=== PATIENT | female | born 1940 | race Caucasian/White ===

== ENCOUNTER 2019-06-29 06:11 | Inpatient (IN) ==
[2019-06-29] MEDS ORDERED: NS 1,000 ML IV ONE ×3 (06:21→07:56)
[2019-06-29] MEDS ORDERED: ZOFRAN IV ONE (06:22)
[2019-06-29] MEDS ORDERED: BENTYL IM ONE (06:22)
--- NOTE | 2019-06-29 06:30 | PROVIDER DOCUMENTATION ---
HPI-Syncope/Dizziness - General Stated Complaint: syncope Time Seen by Provider: 06/29/19 06:13 Source: patient, EMS Allergies/Adverse Reactions: Patient Allergies Allergy/AdvReac Type Severity Reaction Status Date / Time Penicillins Allergy Severe RASH Verified 06/29/19 07:34 Sulfa (Sulfonamide Allergy Severe ANAPHYLAXIS Verified 06/29/19 07:34 Antibiotics) [Sulfa(Sulfonamide Antibiotics)] Home Medications: Home Medication List Medication Instructions Recorded Confirmed Last Taken Type Fluoxetine [Prozac] 20 mg PO DAILY 03/30/12 06/29/19 01/23/18 12:00 History Levothyroxine [Synthroid] 88 microgm PO DAILY 03/30/12 06/29/19 01/25/18 06:00 History Omeprazole 40 mg PO DAILY 03/11/15 06/29/19 01/23/18 12:00 History Cholecalciferol (Vitamin D3) 3,000 unit PO DAILY 06/29/19 06/29/19 Unknown History [Vitamin D3] Mecobalamin [B12 Active] 1,000 mcg PO DAILY 06/29/19 06/29/19 Unknown History Multivitamin [Multi-Vitamin Daily] 1 ea PO DAILY 06/29/19 06/29/19 Unknown History - History of Present Illness-Syncope/Dizzy Nature of Presenting Problem: 78yo female, brought by EMS for syncope and collapse x 3 since midnight. States last time she passed out in the bathroom, and she hit the right forehead. States she had sudden onset of profuse N/V/D since midnight, numerous times, and this has caused her to become dehydrated and pass out. Denies blood in vomit or stool. Has some mild to moderate abdominal cramps. No fever/chills. Prior Episodes: reports: no prior history, multiple episodes today Onset/Duration: reports: 4-6 hours ago Timing: reports: still present, constant, getting worse Position/Activity at time of episode: reports: activity (in the bathroom, vomiting and diarrhea) Symptoms prior to episode: reports: lightheaded, nausea/vomiting (and diarrhea), abdominal pain (some mild to moderate crampy), diaphoresis. denies: headache, visual disturbance, chest pain, racing heart, back pain, confusion, injury, recent head trauma, rapid heart beat Context: reports: lost consciousness, collapsed. denies: confused after event, incontinent of urine, incontinent of stool, breathing stopped, lost pulse, seizure activity observed, low blood sugar Loss of Consciousness: brief (seconds) Location of injury. (If syncope resulted in an injury.): reports: head Current Symptoms: reports: sweaty Recently Seen Here or By Another Healthcare Provider: Yes (Saw Dr. Gomez for leg pain, negative DVT, put on prednisone ) Review of Systems - Adult - REVIEW OF SYSTEMS - ADULT Constitutional: reports: no symptoms reported Eyes: reports: no symptoms reported Ears, Nose, Mouth & Throat: reports: no symptoms reported Cardiovascular: reports: no symptoms reported Respiratory: reports: no symptoms reported Gastrointestinal: reports: no symptoms reported Genitourinary: reports: no symptoms reported Musculoskeletal: reports: no symptoms reported Integumentary: reports: no symptoms reported Neurological: reports: no symptoms reported Psychiatric: reports: no symptoms reported Endocrine: reports: no symptoms reported Hematologic/Lymphatic: reports: no symptoms reported Allergic/Immunologic: reports: no symptoms reported All Other Systems: Reviewed and Negative Past History - Adult - PAST MEDICAL HISTORY-ADULT Review of Records: reports: Old Records Reviewed, Nursing Assessment Review, Medications Reviewed, Social history reviewed & non-contributory. Major Childhood Illnesses: reports: denies history Cardiovascular: reports: pacemaker Respiratory: reports: cancer Gastrointestinal: reports: denies history Obstetrical/Gynecological: reports: denies history Genitourinary: reports: denies history Musculoskeletal: reports: denies history Neurological: reports: denies history Endocrine/Immune: reports: denies history Other Conditions: reports: denies history - PRIOR SURGERIES/PROCEDURES Surgical/Procedure History: reports: reviewed, not pertinent, pacemaker, joint replacement - IMMUNIZATION STATUS Childhood Immunizations: See Nurse Assessment Flu Vaccine: See Nurse Assessment - FAMILY HISTORY Family History: reviewed, not pertinent - SOCIAL HISTORY Smoking: non-smoker Substance Use: none/never Alcohol Use Frequency: rarely Living Situation: family Physical Exam-General - PHYSICAL EXAM-ADULT Initial Vital Signs Reviewed: Yes (VSSAF) - CONSTITUTIONAL General Appearance: appears well, alert, no apparent distress - EYES Eyes: PERRL/EOMI, pink conjunctivae. negative: subconjunctival hemorrhage - HEAD, EARS, NOSE, MOUTH & THROAT HENMT: moist mucous membranes, normal ENT inspection, TMs normal, other (there is a 3fpp9by hematoma, right foreahead with ecchymosis and mild tenderness without deformit. Negative racoon's/Patel's sign.) - NECK Neck: non-tender, full range of motion, supple, normal inspection. negative: meningismus - RESPIRATORY Respiratory: chest non-tender, lungs clear, normal breath sounds, no pleuratic chest pain, no respiratory distress, no accessory muscle use - CARDIOVASCULAR Cardiovascular: normal peripheral pulses, regular rate, rhythm, no edema, no gallop, no JVD, no murmur - GASTROINTESTINAL (ABDOMEN) Abdominal Exam: soft, no organomegaly, no pulsatile mass, abnormal bowel sounds (hyperactive), tenderness (mild diffuse). negative: guarding, rebound - LYMPHATIC Lymphatic: no adenopathy - MUSCULOSKELETAL Back Exam: normal inspection, no CVA tenderness, no vertebral tenderness Extremity: normal range of motion, non-tender, normal gait, normal inspection, no pedal edema, no calf tenderness, normal capillary refill - SKIN Integumentary: normal color, normal turgor, other (clammy, cool and moist) Progress - PLAN OF CARE/RESULTS Progress/Plan/Lab Results: Vital Signs - 8 hr 06/29/19 06:27 Temperature 97.6 F Pulse Rate 78 Respiratory Rate 18 Blood Pressure 114/62 O2 Sat by Pulse Oximetry 97 Laboratory Results - last 24 hr 06/29/19 06/29/19 06/29/19 06:53 06:53 06:53 WBC RBC Hgb Hct MCV MCH MCHC RDW Std Deviation Plt Count MPV Immature Gran % (Auto) Neut % (Auto) Lymph % (Auto) Gillespie % (Auto) Eos % (Auto) Baso % (Auto) Immature Gran # (Auto) Neut # (Auto) Lymph # (Auto) Gillespie # (Auto) Eos # (Auto) Baso # (Auto) PT INR PTT (Actin FS) D-Dimer, Quantitative Sodium 139 Potassium 4.1 Chloride 97 L Carbon Dioxide 28 Anion Gap 14 BUN 21 Creatinine 0.9 Estimated GFR/1.73 m2 > 60 BUN/Creatinine Ratio 23 Glucose 131 H POC Glucose Calculated Osmolality 282 Calcium 8.8 Magnesium 1.9 Total Bilirubin 0.71 AST 19 ALT 16 Alkaline Phosphatase 135 H Creatine Kinase Troponin T High Sens Nxc-K-Qrzscsedmti Pept Total Protein 7.5 Albumin 4.2 Globulin 3.3 Albumin/Globulin Ratio 1.3 Plasma Lactate 2.4 H TSH 1.40 06/29/19 06/29/19 06/29/19 06:53 06:53 06:53 WBC 15.56 H RBC 4.62 Hgb 13.4 Hct 43.2 MCV 93.5 MCH 29.0 MCHC 31.0 L RDW Std Deviation 14.1 Plt Count 287 MPV 8.7 Immature Gran % (Auto) 0.4 Neut % (Auto) 87.0 H Lymph % (Auto) 5.9 L Gillespie % (Auto) 6.0 Eos % (Auto) 0.6 Baso % (Auto) 0.1 Immature Gran # (Auto) 0.06 H Neut # (Auto) 13.53 H Lymph # (Auto) 0.92 L Gillespie # (Auto) 0.94 H Eos # (Auto) 0.09 Baso # (Auto) 0.02 PT INR PTT (Actin FS) D-Dimer, Quantitative Sodium Potassium Chloride Carbon Dioxide Anion Gap BUN Creatinine Estimated GFR/1.73 m2 BUN/Creatinine Ratio Glucose POC Glucose Calculated Osmolality Calcium Magnesium Total Bilirubin AST ALT Alkaline Phosphatase Creatine Kinase Troponin T High Sens 8 Fmz-A-Rfvehdxgtuk Pept 517 H Total Protein Albumin Globulin Albumin/Globulin Ratio Plasma Lactate TSH 06/29/19 06/29/19 06/29/19 06:53 06:53 07:47 WBC RBC Hgb Hct MCV MCH MCHC RDW Std Deviation Plt Count MPV Immature Gran % (Auto) Neut % (Auto) Lymph % (Auto) Gillespie % (Auto) Eos % (Auto) Baso % (Auto) Immature Gran # (Auto) Neut # (Auto) Lymph # (Auto) Gillespie # (Auto) Eos # (Auto) Baso # (Auto) PT 13.2 INR 0.99 PTT (Actin FS) 27.9 D-Dimer, Quantitative 2.42 H Sodium Potassium Chloride Carbon Dioxide Anion Gap BUN Creatinine Estimated GFR/1.73 m2 BUN/Creatinine Ratio Glucose POC Glucose 105 H Calculated Osmolality Calcium Magnesium Total Bilirubin AST ALT Alkaline Phosphatase Creatine Kinase 69 Troponin T High Sens Cdl-S-Ntfnsvtpccx Pept Total Protein Albumin Globulin Albumin/Globulin Ratio Plasma Lactate TSH Orders Category Date Time Status Cardiac Monitoring NOW Care 06/29/19 07:46 Active Finger Stick Blood Sugar (ED) DIRECTED Care 06/29/19 06:18 Completed Saline Loc NOW Care 06/29/19 06:18 Active CHEST-PORTABLE [RAD] Stat Exams 06/29/19 06:[address] HEAD/C-SPINE W/O CONTRAST [CT] Stat Exams 06/29/19 06:20 Completed BLOOD CULTURE [BLDCUL] Stat Lab 06/29/19 07:24 Received C DIFF TOXIN [STOOL] Stat Lab 06/29/19 06:19 Uncollected CBC WITH ELECTRONIC DIFF [HEME] Stat Lab 06/29/19 06:53 Completed CK PROFILE [SP CHEM] Stat Lab 06/29/19 06:53 Completed COMPREHENSIVE METABOLIC PANEL [CHEM] Stat Lab 06/29/19 06:53 Completed D-DIMER [COAG] Stat Lab 06/29/19 06:53 Completed LACTATE, PLASMA [CHEM] Lab 06/29/19 11:00 Uncollected LACTATE, PLASMA [CHEM] Lab 06/29/19 14:00 Uncollected LACTATE, PLASMA [CHEM] Stat Lab 06/29/19 06:53 Completed MAGNESIUM [CHEM] Stat Lab 06/29/19 06:53 Completed PRO B-NATRIURETIC PEPTIDE Stat Lab 06/29/19 06:53 Completed PROTIME WITH INR [COAG] Stat Lab 06/29/19 06:53 Completed PTT [COAG] Stat Lab 06/29/19 06:53 Completed TROPONIN T HIGH SENSITIVITY Stat Lab 06/29/19 06:53 Completed TSH Stat Lab 06/29/19 06:53 Completed URINALYSIS W/POSS RFLX CULT [URINALYSIS] Stat Lab 06/29/19 06:19 Uncollected 0.9% Sodium Chloride Inj [Ns] 1,000 ml Med 06/29/19 07:56 Active IV 200 mls/hr 0.9% Sodium Chloride Inj [Ns] 1,000 ml Med 06/29/19 06:21 Discontinued IV 999 mls/hr 0.9% Sodium Chloride Inj [Ns] 1,000 ml Med 06/29/19 06:22 Discontinued IV 999 mls/hr Dicyclomine [Bentyl] Med 06/29/19 06:22 Discontinued 20 mg IM NOW ONE Ondansetron [Zofran] Med 06/29/19 06:22 Discontinued 4 mg IV NOW ONE O2 Per Protocol Stat Oth 06/29/19 07:46 Active EKG [EKG] Stat Ther 06/29/19 06:18 Ordered Result Diagrams: 06/29/19 06:53 06/29/19 06:53 - REASSESSMENT Reassessment #1 Time Reassessed: 08:35 Status: unchanged (Add'l hx: at least 1/3 episodes of reported syncope was witnessed by daughter (at bedside now). pt had complete LOC lasting est 15-30 sec. not witnessed seizure activity. Recent hx remarkable for complaint of L knee STS eval last week by Dr. Gomez. pt had neg (bilat) US for DVT, was put on steroids w/ resolution of STS. PMHx remarkable for 1 remote episode of near- syncope in [place], pt states she was told her 'node' wasn't working reliably and pacemaker was placed. no hx of other cardiac disease, or PE. Pt is s/p bilat knee surgery w/ autotransfusion performed omari-operatively (~ 1959), but no clear hx of anemia. she has a hx of Stage IV Hodgkins in remission since 2016 (Tam Bruce). hx of childhood/exertional asthma. She describes ~ profound fatigue for 'over a year.' the emesis was light brown on one occasion, pt had "just drank Coke." no melena or h'chezia. denies any pain at this time. current exam reveals no surgical abd tenderness. pt awake alert. Labs reveal leukocytosis w/ left shift, minor lactate elev, notable dimer elev (however pt denies CP/SOB, has normal VS on monitor: doubt acute PE- will discuss w/ Hospitalist service.) - EKG 1 Time of EKG reading by physician:: 06:54 EKG Read and Signed by:: Dar Garcia EKG Interpretation (*Must complete 3 of following elements*): Abnormal Rate: 81 Rhythm: NSR [place]: normal QRS: normal HI Interval: normal ST Wave: non-specific ST changes - CONSULTS/PCP/HOSPITALIST Notification #1 *Consult/PCP/Hospitalist*: Hospitalist Time Discussed: 09:02 Consult Disposition: Admit - CHANGE OF SHIFT REPORT (ED Provider) 1 Report Given and Care Transferred to:: Kay Time of Transfer: 07:00 Items Pending: Labs, CT/MRI Results Departure - Departure Date of Disposition Decision: 06/29/19 Time of Disposition Decision: 09:02 DIAGNOSIS: Syncope and collapse, Vomiting and diarrhea, Leukocytosis, Elevated d-dimer, Lactate blood increase Disposition: ADMITTED INPATIENT 09 Certified Medical Emergency: Emergent Condition: Serious Referrals and Follow-Ups: Baldemar Bajwa MD [Primary Care Provider] - - Critical Care Note This patient required my direct & personal management of CC.: No Attestation - Physician/ EMRE Attestation The physician spent face to face time with patient:: Yes Advanced Practice Provider documentation review:: Supervising physician onsite and consulted in the evaluation and care of this patient. The physician did have a face to face encounter with the patient.
[2019-06-29 07:29] LABS: AGAP 14; ALB/GLOB RATIO 1.3; ALBUMIN 4.2 g/dL (3.5-5.0); ALKALINE PHOSPHATASE 135 U/L (32-104); BUN 21 mg/dL (8-22); CALCIUM 8.8 mg/dL (8.8-10.2); CHLORIDE 97 mmol/L (98-107); COSMO 282; CREATININE 0.9 mg/dL (0.5-0.9); ESTIMATED GFR > 60; GLUCOSE 131 mg/dL (70-104); GOT 19 U/L (10-30); GPT 16 U/L (10-36); MAGNESIUM 1.9 mg/dL (1.5-2.7); POTASSIUM 4.1 mmol/L (3.5-5.1); SODIUM 139 mmol/L (136-145); TCO2 28 mmol/L (25-35); TOTAL BILIRUBIN 0.71 mg/dL (0.20-1.00); TOTAL PROTEIN 7.5 g/dL (6.3-8.3)
[2019-06-29 07:35] LABS: BASO# 0.02 X1000 (0.0-0.2); BASO% 0.1 % (0.0-0.8); EOS# 0.09 X1000 (0.0-0.7); EOS% 0.6 % (0.0-10.0); HEMATOCRIT 43.2 % (37.0-47.0); HEMOGLOBIN 13.4 g/dL (12.0-16.0); IMM GRAN# 0.06 X1000 (0.0-0.04); IMM GRAN% 0.4 % (0.0-0.5); LYMPH# 0.92 X1000 (1.2-3.4); LYMPH% 5.9 % (20.5-51.1); MCV 93.5 FL (81-99); MONO# 0.94 X1000 (0.11-0.59); MPV 8.7 FL (7.4-10.4); NEUT# 13.53 X1000 (1.4-6.5); PLT 287 X1000 (130-400); RBC 4.62 XMIL (4.2-5.4); RDW 14.1 % (11.5-14.5); WBC 15.56 X1000 (4.8-10.8)
[2019-06-29 07:37] LABS: INR 0.99; PROTIME 13.2 Seconds (11.0-16.0)
--- NOTE | 2019-06-29 07:37 | Diag Imaging Result Doc PS360 ---
EXAM: CT HEAD/C-SPINE W/O CONTRAST - 06/29/2019 HISTORY: head injury/pain TECHNIQUE: CT head/cervical spine without contrast COMPARISON: 12/14/2017 CT head FINDINGS: CT head: There is no evidence of intracranial hemorrhage, mass effect, midline shift, or hydrocephalus. There is no evidence of infarct, although acute infarcts may not be immediately visible. There is no evidence of skull fracture. There is a small amount of fluid in the left maxillary sinus. The visualized paranasal sinuses and mastoid air cells otherwise appear clear. CT cervical spine: There is fusion of the C6 and C7 vertebral bodies. There are substantial degenerative changes at atlantoaxial articulation. There is degenerative disc disease which is most prominent at C5-6, where there is associated mild spinal stenosis. There is no fracture, acute subluxation, or precervical soft tissue swelling identified. There is multilevel degenerative facet disease. IMPRESSION: CT head: No visible acute intracranial abnormality. No evidence of intracranial injury. Small amount of fluid in left maxillary sinus. CT cervical spine: Fusion of C6 and C7 vertebral bodies. Substantial multilevel degenerative disease. No evidence of fracture or acute subluxation. This exam was performed using automated exposure control, adjustment of mA or kV according to patient size, and/or use of iterative reconstruction technique. Electronically signed by Louie Houston 06/29/2019 7:35 AM
[2019-06-29 07:38] LABS: PTT 27.9 Seconds (22.3-41.8)
--- NOTE | 2019-06-29 07:38 | Diag Imaging Result Doc PS360 ---
EXAM: CHEST-PORTABLE - 06/29/2019 HISTORY: syncope TECHNIQUE: Portable chest COMPARISON: 01/23/2018 FINDINGS: Heart size appears within normal limits. There is transvenous cardiac pacemaker again seen. There is mild prominence of left infrahilar markings which appears to be chronic. The lungs appear clear of acute changes. There is no pleural effusion or pneumothorax identified. IMPRESSION: No acute changes. Electronically signed by Louie Houston 06/29/2019 7:36 AM
[2019-06-29 09:16] LABS: URINE SOURCE CLEAN CATCH
[2019-06-29 09:19] LABS: BILIRUBIN URINE NEGATIVE (NEGATIVE); BLOOD URINE NEGATIVE (NEGATIVE); COLOR YELLOW; GLUCOSE URINE NEGATIVE (NEGATIVE); KETONE URINE NEGATIVE (NEGATIVE); LEUKOCYTES URINE NEGATIVE (NEGATIVE); NITRITE URINE NEGATIVE (NEGATIVE); PH URINE 7.5; PROTEIN URINE NEGATIVE (NEGATIVE); SP GRAVITY URINE 1.017; TURBIDITY URINE CLEAR (CLEAR); UROBILINOGEN URINE NORMAL (NORMAL)
[2019-06-29 09:21] LABS: UR EPITHELIAL CELLS <10 /HPF (<10); URINE BACTERIA NEGATIVE /HPF; URINE RBC <10 /HPF (<10); URINE WBC <10 /HPF (<10)
[2019-06-29] MEDS ORDERED: ZOFRAN IV PRN (09:21)
[2019-06-29] MEDS ORDERED: NS 1,000 ML IV SCH (10:00)
--- NOTE | 2019-06-29 10:22 | HISTORY AND PHYSICAL ---
Ms. Raines is a 77-year-old. PAST MEDICAL HISTORY: 1. Asthma. 2. She has had transfusion in the past. 3. Gastroesophageal reflux disease. 4. Primary hypothyroidism. 5. Osteoarthritis. 6. She has had a pacemaker placed. 7. She has had colonoscopy and EGD. 8. She has had a history of depression. PAST SURGICAL HISTORY: 1. Left total knee arthroplasty. 2. She has also had a right total knee arthroplasty. 3. Lower back laminectomy. 4. Cervical laminectomy. 5. Pacemaker insertion performed in 1997. SOCIAL HISTORY: She is single, 2 children. There is no alcohol or tobacco history. FAMILY HISTORY: She did not report any and looking in past medical reports, no significant past medical history. REVIEW OF SYSTEMS: She presented, stated she was feeling fine until about 12 o'clock midnight yesterday. Then started having nausea and then threw up several times. She passed out 3 to 4 times, almost every time in the bathroom, and just for a short time. This was in the face of nausea and also had diarrhea. She was exposed to a grandchild who had viral gastroenteritis. PHYSICAL EXAMINATION: GENERAL: In the emergency room, she is awake, alert, oriented x3. Pleasant. HEENT: Pupils are equal and round. LUNGS: Clear in all lung [place]. CARDIOVASCULAR EXAMINATION: Regular rhythm and rate without murmur or S3. ABDOMEN: Soft, nondistended, nontender. Positive bowel sounds. EXTREMITIES: No pedal edema. VITAL SIGNS: Temperature 97.6 degrees, pulse 78, respirations 18, blood pressure 114/62. Height 5 feet 2 inches, weight 195 pounds. LABORATORY DATA: White count 15,560, hematocrit 43, platelet count 287,000. Sodium 139, potassium 4.1, chloride 97, BUN 21, creatinine 0.9, blood sugar 131, calculated osmolality 282, calcium is 8.8. AST is 19, ALT is 16, alkaline phosphatase is 135. ProBNP is 517. TSH is 1.4. Plasma lactate level was 2.4. Prothrombin time 13.2, PTT is 27. Urinalysis unremarkable. Chest x-ray was clear. No sign of infiltrates. CT of head and cervical spine was unremarkable. She has fusion of C6 and C7 vertebral bodies, substantial multilevel degenerative disease. No evidence of fracture or acute subluxation. She did, of note, fall I think a couple times this morning. ASSESSMENT AND PLAN: It appears she has viral gastroenteritis. I suspect the white count is elevated because of stress and demargination, and vomiting but she did get some steroids last week, I believe. Her lab is unremarkable. She does appear to be volume contracted, a little bit dehydrated. Last echocardiogram was in 2018. She has a normal left ventricle. She does have a pacemaker. I think the pacemaker was placed for sick sinus syndrome, but I am not sure about that. We will ask cardiology to evaluate and maybe interrogate the pacemaker and repeat another echocardiogram. We will give her some fluids, normal saline, and we will run them in at 100 mL an hour for 8 hours and then turn it down to 85 mL an hour. We will give her Zofran for nausea and put her on a clear liquid diet. Reviewing her home medications, we will place her on everything she is on. She is on vitamin D3 with 3000 units a day, Prozac 20 mg a day, Synthroid 88 mcg a day, vitamin B12 with 1000 mcg a day, multivitamin 1 a day, and omeprazole 40 mg a day. We will continue all those. cc: Fabio Shah MD
[2019-06-29] MEDS ORDERED: DILAUDID IV PRN (11:06)
[2019-06-29] MEDS ORDERED: NS 500 ML IV ONE (11:14)
[2019-06-29] MEDS ORDERED: VANCOMYCIN IV PER PHARMACY MISC SCH (11:15)
[2019-06-29] MEDS: SYNTHROID PO SCH (11:33)
[2019-06-29] MEDS: VITAMIN B-12 PO SCH (11:33)
[2019-06-29] MEDS: PRILOSEC PO SCH (11:34)
[2019-06-29] MEDS: PROZAC PO SCH (11:34)
[2019-06-29] MEDS: VITAMIN D PO SCH (11:34)
[2019-06-29] MEDS: LEVAQUIN 500 MG/D5W 500 MG/100 ML IVPB IV SCH ×2 (11:37→14:22)
[2019-06-29] MEDS: TYLENOL PO PRN ×2 (13:24→22:35)
[2019-06-29] MEDS ORDERED: VANCOMYCIN 1,750 MG in NS 250 ML IV ONE (14:00)
--- NOTE | 2019-06-29 16:13 | CARDIOLOGY CONSULTATION ---
DATE: 06/29/2019 HISTORY OF PRESENT ILLNESS: Ms. Raines is a 78-year-old white female with history of permanent pacemaker implantation who presented yesterday with nausea, vomiting, diarrhea and syncope. She had been feeling her usual self when she woke up but then started having some mild abdominal symptoms. She subsequently last night had several severe bouts of nausea, vomiting, as well as diarrhea. During the course of those she thinks she passed out roughly 4 to 5 times. These were relatively brief in duration lasting just a few seconds to a minute. Some were preceded by lightheadedness, some not. This morning, she feels much better after receiving fluids. She has a permanent pacemaker implanted with generator change in 2016. She had no chest pain or heart racing preceding the event. PAST MEDICAL HISTORY: 1. Permanent pacemaker implantation with a generator change in 2016. This was done for sick sinus syndrome. It was originally done in [place] while she was on a vacation. When she came back she actually had to have leads adjusted. This was done in [place]. 2. Hypertension. 3. Sleep apnea. 4. Hyperlipidemia. 5. Chronic kidney disease. 6. History of non-Hodgkin lymphoma. 7. Anemia. 8. Osteoarthritis. SOCIAL HISTORY: She is single. No alcohol or tobacco. FAMILY HISTORY: No history of hypertension. REVIEW OF SYSTEMS: Ten system review of systems is negative except for those things mentioned in HPI. PHYSICAL EXAMINATION: Afebrile. Heart rate 93, blood pressure 136/48. I do not have any documented orthostatics. Her I's and O's are not accurately recorded. General: She is in no acute distress. HEENT: Oropharynx is moist. Poor dentition. [place] conjunctivae. White sclerae. Neck: Shows no obvious thyromegaly or thyroid tenderness. Cardiovascular: She sounds to be in a regular rate and rhythm. She has no obvious murmurs. She has no S3. She has no lower extremity edema. Her chest exam sounds relatively clear to auscultation bilaterally. She has no increased work of breathing. Abdomen: Soft, nontender. Neurological: She is moving all extremities well. She has no lateralizing deficits. PERTINENT DATA: EKG shows sinus rhythm. No obvious ischemic changes. She had a head and C- spine CT that demonstrates no acute intracranial abnormalities. Chronic degenerative C-spine disease but no acute fractures. Chest x-ray, no obvious acute abnormalities. Lab data shows a white count of 15.5, hematocrit of 43, platelet count of 287,000. D-dimer 2.4. Sodium 139, potassium 4.1, BUN 21, creatinine 0.9. ProBNP is 517. High sensitivity troponin was 8. ASSESSMENT: Ms. Raines is a 78-year-old female who presented with nausea, vomiting, diarrhea and syncope. PLAN: We will proceed with echocardiogram tomorrow. We will have [employer] evaluate device in the morning. If this is unremarkable, then she could likely be discharged. I believe most likely the patient was experiencing vagal episodes in the setting of being volume depleted from her GI illness. cc: Leland Giordano MD
--- NOTE | 2019-06-29 17:17 | EKG Report ---
Test Performed on : 06/29/2019 06:48:22 AM Test Reason : LOC Blood Pressure : / mmHG Vent. Rate : 081 BPM Atrial Rate : 081 BPM P-R Int : 140 ms QRS Dur : 086 ms QT Int : 380 ms P-R-T Axes : 017 027 073 degrees QTc Int : 441 ms Normal sinus rhythm. Nonspecific T wave abnormality Abnormal ECG When compared with ECG of 23-JAN-2018 13:39, Nonspecific T wave abnormality now evident in Lateral leads Unconfirmed Result
[2019-06-29] MEDS: NS 1,000 ML IV SCH (22:15)
[2019-06-30] MEDS: NS 1,000 ML IV SCH (05:24)
[2019-06-30] MEDS: SYNTHROID PO SCH (06:10)
[2019-06-30] MEDS: PRILOSEC PO SCH (06:10)
[2019-06-30 08:53] LABS: HEMOGLOBIN A1C 5.9 % (4.8-6.0)
[2019-06-30 08:54] LABS: BASO# 0.01 X1000 (0.0-0.2); BASO% 0.2 % (0.0-0.8); EOS# 0.08 X1000 (0.0-0.7); EOS% 1.5 % (0.0-10.0); HEMATOCRIT 36.4 % (37.0-47.0); IMM GRAN# 0.02 X1000 (0.0-0.04); IMM GRAN% 0.4 % (0.0-0.5); MCHC 30.2 g/dL (33-37); MONO% 7.6 % (1.7-9.3); MPV 8.8 FL (7.4-10.4); NEUT# 3.75 X1000 (1.4-6.5); NEUT% 71.3 % (42.2-75.2); PLT 215 X1000 (130-400); RBC 3.79 XMIL (4.2-5.4); RDW 14.5 % (11.5-14.5); WBC 5.26 X1000 (4.8-10.8)
[2019-06-30] MEDS ORDERED: THERA M PLUS PO SCH (09:00)
[2019-06-30 09:15] LABS: AGAP 9; ALB/GLOB RATIO 1.2; ALBUMIN 3.3 g/dL (3.5-5.0); ALKALINE PHOSPHATASE 108 U/L (32-104); BUN 13 mg/dL (8-22); CALCIUM 8.4 mg/dL (8.8-10.2); CHLORIDE 103 mmol/L (98-107); COSMO 280; CREATININE 0.9 mg/dL (0.5-0.9); ESTIMATED GFR > 60; GLUCOSE 107 mg/dL (70-104); GOT 15 U/L (10-30); GPT 11 U/L (10-36); POTASSIUM 4.2 mmol/L (3.5-5.1); SODIUM 140 mmol/L (136-145); TCO2 28 mmol/L (25-35); TOTAL BILIRUBIN 0.59 mg/dL (0.20-1.00)
[2019-06-30 09:30] LABS: FREE T4 1.42 ng/dL (0.93-1.70); TSH 0.59 uIUmL (0.27-4.20)
[2019-06-30] MEDS: VITAMIN D PO SCH (09:34)
[2019-06-30] MEDS: PROZAC PO SCH (09:34)
[2019-06-30] MEDS: VITAMIN B-12 PO SCH (09:34)
--- NOTE | 2019-06-30 10:55 | DISCHARGE SUMMARY ---
ADMISSION DATE: 06/29/2019 DISCHARGE DATE: HISTORY OF PRESENT ILLNESS: Ms. Raines came in yesterday, on 06/29/2019. Her doctor is Dr. Baldemar Bajwa. This is a 78-year-old who developed nausea, vomiting, and diarrhea at about 12:00 the night before, and had just felt very weak and felt like she had a viral gastroenteritis. She was exposed to a grandchild that had a viral gastritis fairly recently. PAST MEDICAL HISTORY: 1. Asthma. 2. She has had transfusion in the past. 3. Gastroesophageal reflux disease. 4. Primary hypothyroidism. 5. Osteoarthritis. 6. She has had a pacemaker placed. 7. Colonoscopy and EGD done in the past. 8. History of depression. PAST SURGICAL HISTORY: 1. Left total knee arthroplasty. 2. Also had right total knee arthroplasty. 3. Lower back laminectomy. 4. Cervical laminectomy. 5. Pacemaker insertion performed in 1997. ADMISSION DIAGNOSES: Viral gastroenteritis. White count was elevated. [place] this was from nausea, stress, demargination, and she had been on steroids the week before. She was volume contracted, and her hematocrit was stable. Creatinine was 0.9. She felt much better the following morning after some fluids, and was requesting to go home, so will discharge her home. HOME MEDICATIONS: Vitamin D3 at 3000 units a day, Prozac 20 mg a day, Synthroid 88 mcg daily, B12 at 1000 mcg daily, multivitamin 1 a day, and omeprazole 40 mg a day. FOLLOWUP: She will follow up with Dr. Bajwa. DISCHARGE INSTRUCTIONS: I told her to advance her diet slowly. She has had a recent workup with Dr. Rubio, I believe, and so I will cancel her echocardiogram. cc: Fabio Shah MD
[2019-06-30 11:56] VITALS: BP 134/56
[2019-06-30] MEDS ORDERED: FLU VACCINE IM ONE (12:15)
[2019-06-30] MEDS: LEVAQUIN 500 MG/D5W 500 MG/100 ML IVPB IV SCH (12:29)
[2019-06-30] MEDS ORDERED: VANCOMYCIN 1,500 MG in NS 250 ML IV SCH (20:00)
== END 2019-06-30 12:38 | disposition home or self-care (01) | DRG 641 ==
LOC: SUPCPDRO → ED 06:11 → EDIPHOLD 09:33 → 3N 12:45
PROVIDERS: ATTEND Emergency Medicine